=== PATIENT | female | born 1955 | race Caucasian/White ===

== ENCOUNTER 2017-11-24 17:51 | Inpatient (IN) | payer OTHER ==
[2017-11-24] MEDS: AZTREONAM 1 GM/NS (PMX) 50 ML IVPB (22:21)
[2017-11-24] MEDS: ONDANSETRON 4 MG INJ IV (22:23)
[2017-11-24] MEDS: morphine 4 MG/ML VIAL IV (22:24)
[2017-11-24 22:27] LABS: ADD MAN DIFF? NO
[2017-11-24 22:30] LABS: WHITE BLOOD COUNT 13.4 10^3/ul (4.8-10.8)
[2017-11-24 22:30] LABS: ABNORMAL IP MESSAGE 1; BASOPHILS % 0.3 % (0.0-2.0); EOSINOPHILS # 0.1 10^3/ul (0.0-0.5); EOSINOPHILS % 0.4 % (0.0-7.0); HEMATOCRIT 39.8 % (37.0-47.0); HEMOGLOBIN 12.9 g/dl (12.0-16.0); LYMPHOCYTES # 1.5 10^3/ul (0.8-2.9); LYMPHOCYTES % 10.9 % (15.0-51.0); MEAN CORPUSCULAR HEMOGLOBIN 31.1 pg (29.0-33.0); MEAN CORPUSCULAR HGB CONC 32.4 g/dl (32.0-37.0); MEAN CORPUSCULAR VOLUME 95.9 fl (82.0-101.0); MEAN PLATELET VOLUME 11.5 fl (7.4-10.4); MONOCYTE # 1.6 10^3/ul (0.3-0.9); MONOCYTES % 11.8 % (0.0-11.0); NEUTROPHIL # 10.2 10^3/ul (1.6-7.5); NEUTROPHILS % 75.9 % (39.0-77.0); PLATELET COUNT 162 10^3/UL (140-415); RED BLOOD COUNT 4.15 10^6/ul (4.20-5.40); RED CELL DISTRIBUTION WIDTH 13.7 % (11.5-14.5)
[2017-11-24 22:31] LABS: POSITIVE DIFF @See below
[2017-11-24 22:47] LABS: LACTIC ACID 1.3 mmol/L (0.5-2.0)
[2017-11-24 22:48] LABS: ALANINE AMINOTRANSFERASE 18 IU/L (13-69); ALBUMIN/GLOBULIN RATIO 1.05; ALKALINE PHOSPHATASE 93 IU/L (42-121); ANION GAP 13 (8-16); ASPARTATE AMINO TRANSFERASE 32 IU/L (15-46); BILIRUBIN,INDIRECT 0.6 mg/dl (0-1.1); BILIRUBIN,TOTAL 0.6 mg/dl (0.2-1.3); BLOOD UREA NITROGEN 10 mg/dl (7-20); CARBON DIOXIDE 25 mmol/L (21-31); CHLORIDE 103 mmol/L (97-110); CREATININE 0.71 mg/dl (0.44-1.00); GLUCOSE 98 mg/dl (70-220); POTASSIUM 4.7 mmol/L (3.5-5.1); SODIUM 136 mmol/L (135-144); TOTAL PROTEIN 7.8 g/dl (6.1-8.1)
[2017-11-24 22:49] LABS: INR 0.86; PROTIME 11.8 Sec (11.9-14.9); PT RATIO 0.9
[2017-11-24 22:50] LABS: PARTIAL THROMBOPLASTIN TIME 24.5 Sec (25.0-35.0)
[2017-11-24] MEDS: VANCOMYCIN 1 GM (PMX) 250 ML IVPB (22:55)
[2017-11-24 23:00] LABS: TROPONIN-I < 0.012 ng/ml (0.000-0.120)
[2017-11-24] MEDS ORDERED: ONDANSETRON 4 MG INJ IV (23:00)
[2017-11-24] MEDS ORDERED: ACETAMINOPHEN 325 MG TAB PO (23:00)
[2017-11-24 23:09] LABS: ADD UMIC NO; UR ASCORBIC ACID NEGATIVE (NEGATIVE); UR BILIRUBIN (Dip) NEGATIVE (NEGATIVE); UR BLOOD (Dip) NEGATIVE (NEGATIVE); UR CLARITY CLEAR (CLEAR); UR COLOR YELLOW (YELLOW); UR GLUCOSE (Dip) NEGATIVE (NEGATIVE); UR KETONES (Dip) TRACE mg/dL (NEGATIVE); UR LEUKOCYTE ESTERASE (Dip) NEGATIVE Leu/ul (NEGATIVE); UR NITRITE (Dip) NEGATIVE (NEGATIVE); UR SPECIFIC GRAVITY (Dip) 1.012 (1.003-1.030); UR TOTAL PROTEIN (Dip) NEGATIVE (NEGATIVE); UR UROBILINOGEN (Dip) NEGATIVE (NEGATIVE)
[2017-11-25 01:28] LABS: LACTIC ACID 0.9 mmol/L (0.5-2.0)
[2017-11-25] MEDS ORDERED: LEVALBUTEROL (NEB) 0.63 MG/3 ML AMP HHN (01:30)
[2017-11-25] MEDS ORDERED: IPRATROPIUM (NEB) 0.5 MG/2.5 ML AMP NEB (01:30)
[2017-11-25] MEDS ORDERED: ACETAMINOPHEN 325 MG TAB PO (01:30)
[2017-11-25] MEDS ORDERED: ALBUTEROL HFA 8 GM INHALER INH (01:30)
[2017-11-25] MEDS ORDERED: ONDANSETRON 4 MG INJ IV (01:30)
[2017-11-25] MEDS ORDERED: NACL 0.9% 3 ML SYG IV (01:30)
[2017-11-25 03:06] LABS: LACTIC ACID 0.8 mmol/L (0.5-2.0)
[2017-11-25 05:51] LABS: ADD MAN DIFF? NO
[2017-11-25 05:59] LABS: WHITE BLOOD COUNT 10.5 10^3/ul (4.8-10.8)
[2017-11-25 05:59] LABS: BASOPHILS % 0.3 % (0.0-2.0); EOSINOPHILS # 0.1 10^3/ul (0.0-0.5); EOSINOPHILS % 0.5 % (0.0-7.0); HEMATOCRIT 37.2 % (37.0-47.0); HEMOGLOBIN 11.7 g/dl (12.0-16.0); LYMPHOCYTES # 1.6 10^3/ul (0.8-2.9); LYMPHOCYTES % 15.5 % (15.0-51.0); MEAN CORPUSCULAR HEMOGLOBIN 30.1 pg (29.0-33.0); MEAN CORPUSCULAR HGB CONC 31.5 g/dl (32.0-37.0); MEAN CORPUSCULAR VOLUME 95.6 fl (82.0-101.0); MEAN PLATELET VOLUME 11.6 fl (7.4-10.4); MONOCYTE # 1.4 10^3/ul (0.3-0.9); MONOCYTES % 13.1 % (0.0-11.0); NEUTROPHIL # 7.4 10^3/ul (1.6-7.5); NEUTROPHILS % 69.9 % (39.0-77.0); PLATELET COUNT 157 10^3/UL (140-415); RED BLOOD COUNT 3.89 10^6/ul (4.20-5.40)
[2017-11-25 06:16] LABS: HEMOGLOBIN A1C 7.2 % (0-5.9)
[2017-11-25 06:29] LABS: ALANINE AMINOTRANSFERASE 22 IU/L (13-69); ALBUMIN 3.4 g/dl (3.3-4.9); ALBUMIN/GLOBULIN RATIO 1.06; ALKALINE PHOSPHATASE 86 IU/L (42-121); ANION GAP 11 (8-16); ASPARTATE AMINO TRANSFERASE 20 IU/L (15-46); BILIRUBIN,INDIRECT 0.7 mg/dl (0-1.1); BILIRUBIN,TOTAL 0.7 mg/dl (0.2-1.3); BLOOD UREA NITROGEN 9 mg/dl (7-20); CALCIUM 8.5 mg/dl (8.4-10.2); CARBON DIOXIDE 31 mmol/L (21-31); CHLORIDE 104 mmol/L (97-110); CHOL/HDL RATIO 2.4 RATIO; CHOLESTEROL 156 mg/dl (100-200); CREATININE 0.78 mg/dl (0.44-1.00); GLUCOSE 91 mg/dl (70-220); HDL CHOLESTEROL 65 mg/dl (35-98); LDL CHOLESTEROL,CALCULATED 65 mg/dl; POTASSIUM 3.8 mmol/L (3.5-5.1); SODIUM 142 mmol/L (135-144); TOTAL PROTEIN 6.6 g/dl (6.1-8.1); TRIGLYCERIDES 128 mg/dl (0-149)
[2017-11-25] MEDS: metFORMIN 500 MG TAB PO ×2 (08:00→17:47)
[2017-11-25] MEDS ORDERED: NON-FORMULARY/PATIENT OWN MED (Omeprazole* 20 MG) PO (09:00)
[2017-11-25] MEDS ORDERED: VANCOMYCIN IV PER PHARMACY XX (09:00)
[2017-11-25] MEDS: CHOLECALCIFEROL 1,000 UNIT TAB PO (09:02)
[2017-11-25] MEDS: MULTIVITAMINS THERAPEUTIC TAB PO (09:02)
[2017-11-25] MEDS: PANTOPRAZOLE (EC) 40 MG TAB PO (09:03)
[2017-11-25] MEDS: SOLIFENACIN 5 MG TAB PO (09:03)
[2017-11-25] MEDS: FLUTICASONE/VILANTEROL 100-25 INH (09:03)
[2017-11-25] MEDS: TIOTROPIUM 18 MCG CAPSULE INHA DEV INH (09:03)
[2017-11-25] MEDS: AZTREONAM 2 GM in SOD CHLORIDE 0.9% 100 ML IVPB ×2 (09:05→17:45)
[2017-11-25] MEDS: HYDROCODONE/APAP (5/325) TAB PO (09:15)
[2017-11-25] MEDS: VANCOMYCIN 750 MG in SOD CHLORIDE 0.9% 150 ML IVPB ×2 (12:09→23:08)
[2017-11-25] MEDS ORDERED: DEXTROSE 50% 50 ML SYRINGE IV ×2 (12:30)
[2017-11-25] MEDS ORDERED: GLUCOSE GEL 15 GRAM TUBE PO ×2 (12:30)
[2017-11-25] MEDS ORDERED: GLUCAGON 1 MG INJ IM (12:30)
[2017-11-25] MEDS ORDERED: GLUCOSE GEL 15 GRAM TUBE BUCCAL (12:30)
[2017-11-25] MEDS: predniSONE 5 MG TAB PO (13:52)
[2017-11-25] MEDS ORDERED: CEFTRIAXONE INJ (14:00)
[2017-11-25] MEDS ORDERED: [UNRECOGNIZED DRUG - OTHER] INJ (14:00)
[2017-11-25] MEDS: CEFTRIAXONE INJ (14:30)
[2017-11-25] MEDS: [UNRECOGNIZED DRUG - OTHER] INJ (14:30)
[2017-11-25] MEDS: INSULIN ASPART [NOVOLOG] 3 ML PEN SC ×2 (17:51→21:00)
[2017-11-25] MEDS ORDERED: NON-FORMULARY/PATIENT OWN MED (Pravastatin Sodium* 40 MG) PO (21:00)
[2017-11-25] MEDS ORDERED: NON-FORMULARY/PATIENT OWN MED (Latanoprost 1 DROP) BOTH EYES (21:00)
[2017-11-25] MEDS: ATORVASTATIN 10 MG TAB PO (21:30)
[2017-11-25] MEDS: LATANOPROST 0.005% 2.5 ML OPH BOTH EYES (21:35)
[2017-11-25] MEDS: CLOBETASOL 0.05% 15 GM OINT TOP (21:36)
[2017-11-26] MEDS: AZTREONAM 2 GM in SOD CHLORIDE 0.9% 100 ML IVPB ×3 (01:08→17:00)
[2017-11-26] MEDS: ACCU-CHEK XX (02:00)
[2017-11-26] MEDS: PANTOPRAZOLE (EC) 40 MG TAB PO (05:40)
[2017-11-26 06:00] LABS: ADD MAN DIFF? NO
[2017-11-26 06:08] LABS: WHITE BLOOD COUNT 10.5 10^3/ul (4.8-10.8)
[2017-11-26 06:08] LABS: BASOPHILS % 0.3 % (0.0-2.0); EOSINOPHILS # 0.1 10^3/ul (0.0-0.5); EOSINOPHILS % 0.5 % (0.0-7.0); HEMATOCRIT 36.8 % (37.0-47.0); HEMOGLOBIN 11.7 g/dl (12.0-16.0); LYMPHOCYTES # 1.4 10^3/ul (0.8-2.9); LYMPHOCYTES % 13.7 % (15.0-51.0); MEAN CORPUSCULAR HEMOGLOBIN 30.8 pg (29.0-33.0); MEAN CORPUSCULAR HGB CONC 31.8 g/dl (32.0-37.0); MEAN CORPUSCULAR VOLUME 96.8 fl (82.0-101.0); MEAN PLATELET VOLUME 11.3 fl (7.4-10.4); MONOCYTE # 1.4 10^3/ul (0.3-0.9); NEUTROPHIL # 7.5 10^3/ul (1.6-7.5); NEUTROPHILS % 71.6 % (39.0-77.0); PLATELET COUNT 158 10^3/UL (140-415); RED CELL DISTRIBUTION WIDTH 13.9 % (11.5-14.5)
[2017-11-26 07:26] LABS: ANION GAP 13 (8-16); BLOOD UREA NITROGEN 11 mg/dl (7-20); CALCIUM 8.3 mg/dl (8.4-10.2); CARBON DIOXIDE 32 mmol/L (21-31); CHLORIDE 104 mmol/L (97-110); CREATININE 0.75 mg/dl (0.44-1.00); GLUCOSE 108 mg/dl (70-220); MAGNESIUM 2.2 mg/dl (1.7-2.5); POTASSIUM 4.3 mmol/L (3.5-5.1); SODIUM 145 mmol/L (135-144)
[2017-11-26] MEDS: INSULIN ASPART [NOVOLOG] 3 ML PEN SC ×4 (07:55→20:29)
[2017-11-26] MEDS: CLOBETASOL 0.05% 15 GM OINT TOP ×2 (08:25→20:32)
[2017-11-26] MEDS: MULTIVITAMINS THERAPEUTIC TAB PO (08:25)
[2017-11-26] MEDS: metFORMIN 500 MG TAB PO ×2 (08:25→17:12)
[2017-11-26] MEDS: CHOLECALCIFEROL 1,000 UNIT TAB PO (08:25)
[2017-11-26] MEDS: SOLIFENACIN 5 MG TAB PO (08:26)
[2017-11-26] MEDS: predniSONE 5 MG TAB PO (08:26)
[2017-11-26] MEDS: TIOTROPIUM 18 MCG CAPSULE INHA DEV INH (08:26)
[2017-11-26] MEDS: FLUTICASONE/VILANTEROL 100-25 INH (08:26)
[2017-11-26 10:21] LABS: VANCOMYCIN,TROUGH 13.4 ug/ml (10.0-20.0)
[2017-11-26] MEDS: VANCOMYCIN 750 MG in SOD CHLORIDE 0.9% 150 ML IVPB ×2 (11:05→21:55)
[2017-11-26] MEDS: LIDOCAINE 1% (MPF) 5 ML VIAL SC (11:46)
[2017-11-26] MEDS: ATORVASTATIN 10 MG TAB PO (20:29)
[2017-11-26] MEDS: LATANOPROST 0.005% 2.5 ML OPH BOTH EYES (20:29)
[2017-11-27] MEDS: AZTREONAM 2 GM in SOD CHLORIDE 0.9% 100 ML IVPB (01:09)
[2017-11-27] MEDS: ACCU-CHEK XX (02:00)
[2017-11-27] MEDS: PANTOPRAZOLE (EC) 40 MG TAB PO (05:35)
[2017-11-27] MEDS: INSULIN ASPART [NOVOLOG] 3 ML PEN SC ×2 (08:00→12:47)
[2017-11-27] MEDS: TIOTROPIUM 18 MCG CAPSULE INHA DEV INH (08:30)
[2017-11-27] MEDS: FLUTICASONE/VILANTEROL 100-25 INH (08:30)
[2017-11-27] MEDS: metFORMIN 500 MG TAB PO (08:31)
[2017-11-27] MEDS: SOLIFENACIN 5 MG TAB PO (08:31)
[2017-11-27] MEDS: predniSONE 5 MG TAB PO (08:31)
[2017-11-27] MEDS: MULTIVITAMINS THERAPEUTIC TAB PO (08:31)
[2017-11-27] MEDS: CHOLECALCIFEROL 1,000 UNIT TAB PO (08:31)
[2017-11-27] MEDS: CLOBETASOL 0.05% 15 GM OINT TOP (08:34)
[2017-11-27] MEDS: LEVOFLOXACIN 500 MG TAB PO (10:03)
[2017-11-27] MEDS: RIFAMPIN 300 MG CAP PO (10:03)
== END 2017-11-27 14:36 | disposition home or self-care (01) | DRG 603 ==
LOC: PP2 22:53 → E/R 17:51
PROC: 02HV33Z Insertion of Infusion Device into Superior Vena Cava, Percutaneous Approach (ICD-10-PCS; principal; 2017-11-26)
DX: L03.012 Cellulitis of left finger (principal); I10 Essential (primary) hypertension; E11.9 Type 2 diabetes mellitus without complications; E78.5 Hyperlipidemia, unspecified; D86.0 Sarcoidosis of lung; F32.9 Major depressive disorder, single episode, unspecified; M65.9 Synovitis and tenosynovitis, unspecified; M81.0 Age-related osteoporosis without current pathological fracture
CPT/HCPCS: 36415; 36569; 71045; 73130-LT; 76937; 80048; 80053; 80061; 80202; 81003; 82962; 83036; 83605; 83735; 84100; 84484; 85025; 85610; 85651; 85730; 86140; 87040; 87070; 87086; 93005; 96374; 96375; 99285-25